=== PATIENT | male | born 1965 | race Caucasian/White ===

== ENCOUNTER → 2023-02-26 | Outpatient (CLI) | payer BC ==
[2023-02-27 05:21] LABS: ALT 69 U/L (10-49); AST 48 U/L (14-35); Albumin 4.2 d/dL (3.8-4.9); Albumin/Globulin Ratio 1.27 Ratio (1.60-3.17); Alkaline Phosphatase 141 U/L (41-126); Blood Urea Nitrogen 15.1 mg/dL (9.0-27.0); Calcium 9.6 mg/dL (8.7-10.3); Carbon Dioxide 23.9 mmol/L (21.6-31.8); Chloride 100 mmol/L (96-109); Chol/HDL Ratio 3.33 Ratio; Globulin 3.3 d/dL (1.6-3.3); Glucose 94 mg/dL (70-110); LDL Cholesterol,Calculated 86.4 mg/dL (0.0-131.0); Potassium 4.9 mmol/L (3.5-5.5); Sodium 136 mmol/L (135-145); Total Bilirubin 0.7 mg/dL (0.3-1.2); Total Protein 7.5 d/dL (6.2-8.2)
== END | disposition home or self-care (01) ==
LOC: LABWHC1 07:09
PROVIDERS: ATTEND Internal Medicine Interventional Cardiology
DX: I48.0 Paroxysmal atrial fibrillation (principal); E78.2 Mixed hyperlipidemia
CPT/HCPCS: 36415; 80053; 80061; 84443

== ENCOUNTER → 2023-02-28 | Outpatient (CLI) | payer BC ==
--- NOTE | 2023-02-28 15:57 | CA ---
Transthoracic Echo Report Name: Jarad Carney Age: 57 Gender: M : 1965 Exam Date: 02/28/2023 13:09 Exam Location: [facility] Ht (in): 71 Wt (lb): 155 Ordering Physician: Mitzi Lemon MD ([id number]) Attending/Referring Phys: Spray Operator Sydney Grewal RDCS Procedure CPT: Indications: I42.9 cardiomyopathy Cardiac Hx: Technical Quality: Fair Contrast 1: Total Dose (mL): Contrast 2: Total Dose (mL): MEASUREMENTS (Male / Female) Normal Values 2D ECHO LV Diastolic Diameter PLAX 4.4 cm 4.2 - 5.9 / 3.9 - 5.3 cm LV Systolic Diameter PLAX 3.8 cm IVS Diastolic Thickness 1.2 cm 0.6 - 1.0 / 0.6 - 0.9 cm LVPW Diastolic Thickness 1.4 cm 0.6 - 1.0 / 0.6 - 0.9 cm LV Relative Wall Thickness 0.6 RV Internal Dim ED PLAX 4.0 cm LA Volume 59.7 cm??? 18 - 58 / 22 - 52 cm??? M-MODE Aortic Root Diameter MM 3.4 cm LA Systolic Diameter MM 3.7 cm LA Ao Ratio MM 1.1 AV Cusp Separation MM 2.4 cm DOPPLER AV Peak Velocity 100.4 cm/s AV Peak Gradient 4.0 mmHg AV Mean Velocity 79.0 cm/s AV Mean Gradient 2.6 mmHg AV Velocity Time Integral 21.1 cm LVOT Peak Velocity 110.5 cm/s LVOT Peak Gradient 4.9 mmHg LVOT Velocity Time Integral 19.1 cm MV Peak Velocity 239.7 cm/s MV Peak Gradient 23.0 mmHg MV Mean Velocity 121.3 cm/s MV Mean Gradient 7.8 mmHg MV Velocity Time Integral 44.8 cm MV Area PHT 2.0 cm??? Mitral E Point Velocity 176.9 cm/s Mitral A Point Velocity 1.8 cm/s Mitral E to A Ratio 100.3 MV Deceleration Time 376.7 ms TR Peak Velocity 284.8 cm/s TR Peak Gradient 32.4 mmHg Right Ventricular Systolic Press 37.0 mmHg FINDINGS Left Ventricle Mildly increased left ventricular wall thickness. Left ventricular cavity size normal. Abnormal (paradoxical) septal motion consistent with postoperative state. Reduced global left ventricular systolic function. Left ventricular ejection fraction is estimated at 30-35 %. Right Ventricle Moderate right ventricular dilatation. Mild pulmonary hypertension. Right Atrium Normal right atrial size. Left Atrium Mildly increased left atrial volume. Mitral Valve S/P Mitral valve repair, no mitral regurgitation. Aortic Valve Trileaflet aortic valve. No aortic valve stenosis or regurgitation. Aortic valve sclerosis. Tricuspid Valve Structurally normal tricuspid valve. Mild tricuspid regurgitation. Pulmonic Valve Trace pulmonic regurgitation. Pericardium No pericardial effusion. Aorta Normal size aortic root and proximal ascending aorta. CONCLUSIONS Mildly increased left ventricular wall thickness Left ventricular ejection fraction 30-35% Bioprosthetic mitral valve replacement with appropriate function Mild tricuspid regurgitation Previewed by: Dr. Valerio Alvarez DO (Electronically Signed) Final Date: 28 February 2023 15:56
== END | disposition home or self-care (01) ==
LOC: RADECHMAIN 12:58
PROVIDERS: ATTEND Internal Medicine Interventional Cardiology
DX: I07.1 Rheumatic tricuspid insufficiency (principal); I27.20 Pulmonary hypertension, unspecified; I42.9 Cardiomyopathy, unspecified
CPT/HCPCS: 93306

== ENCOUNTER → 2023-03-14 | Outpatient (CLI) | payer BC ==
[2023-03-14 11:39] LABS: ALT 53 U/L (10-49); AST 38 U/L (14-35); Chol/HDL Ratio 3.16 Ratio; LDL Cholesterol,Calculated 76.9 mg/dL (0.0-131.0); VLDL Calculation 19.48 mg/dL (5.00-40.00)
== END | disposition home or self-care (01) ==
LOC: LABWHC1 07:10
PROVIDERS: ATTEND Nurse Practitioner Adult Health
DX: E78.2 Mixed hyperlipidemia (principal)
CPT/HCPCS: 36415; 80061; 84450; 84460

== ENCOUNTER → 2023-04-25 | Outpatient (CLI) | payer BC ==
[2023-04-25 13:03] LABS: ALT 28 U/L (4-49); AST 29 U/L (17-59); African American GFR (CKD) 87 (>60 ml/min/1.73 sqM); Albumin/Globulin Ratio 1.1; Alkaline Phosphatase 104 U/L (38-126); Anion Gap 6 mmol/L; Blood Urea Nitrogen 16 mg/dL (9-20); Calcium 8.9 mg/dL (8.4-10.2); Carbon Dioxide 25 mmol/L (22-30); Chloride 102 mmol/L (98-107); Globulin 3.5 g/dL; Glucose 85 mg/dL (74-99); Non-African American GFR(CKD) 75 (>60 ml/min/1.73 sqM); Potassium 4.7 mmol/L (3.5-5.1); Sodium 133 mmol/L (137-145); Total Bilirubin 1.2 mg/dL (0.2-1.3); Total Protein 7.5 g/dL (6.3-8.2)
[2023-04-25 13:09] LABS: NT-Pro-B-Type Natriuretic Pept 1400 pg/mL
== END | disposition home or self-care (01) ==
LOC: LABWHC1 11:37
PROVIDERS: ATTEND Internal Medicine Interventional Cardiology
DX: I25.5 Ischemic cardiomyopathy (principal)
CPT/HCPCS: 36415; 80053; 83880

== ENCOUNTER → 2024-11-20 | Outpatient (CLI) | payer BC ==
[2024-11-20 10:45] LABS: HCT 43.9 % (39.6-50.0); HGB 13.8 g/dL (13.0-17.0); MCH 27.7 pg (27.0-32.0); MCHC 31.4 g/dL (32.0-37.0); MCV 88.2 FL (80.0-97.0); Mean Platelet Volume 9.9 FL (9.5-12.2); NRBC Per 100 WBC 0 X 10*3/uL (0.00-0.01); Platelet Count 365 X 10*3/uL (140-440); RBC 4.98 X 10*6/uL (4.40-5.60); RDW 13.1 % (11.5-14.5); WBC 6.34 X 10*3/uL (4.50-10.00)
[2024-11-20 10:46] LABS: Basophils # (A) 0.03 X 10*3/uL (0.00-0.10); Basophils % (A) 0.5 %; Eosinophils # (A) 0.18 X 10*3/uL (0.04-0.35); Eosinophils % (A) 2.8 %; Lymphocytes % (A) 26.8 %; Monocytes # (A) 0.52 X 10*3/uL (0.20-1.00); Monocytes % (A) 8.2 %; Neutrophils # (A) 3.85 X 10*3/uL (1.80-7.70); Neutrophils % (A) 60.8 %
[2024-11-20 11:02] LABS: Protein, Total 6.9 g/dL (6.2-8.2)
[2024-11-20 11:06] LABS: ALT 25 U/L (10-49); AST 29 U/L (14-35); Albumin 3.8 g/dL (3.8-4.9); Albumin/Globulin Ratio 1.12 Ratio (1.60-3.17); Alkaline Phosphatase 107 U/L (41-126); Blood Urea Nitrogen 8.4 mg/dL (9.0-27.0); Calcium 9.1 mg/dL (8.7-10.3); Carbon Dioxide 25.7 mmol/L (21.6-31.8); Chloride 103 mmol/L (96-109); Globulin 3.4 g/dL (1.6-3.3); Glucose 76 mg/dL (70-110); Potassium 4.5 mmol/L (3.5-5.5); Sodium 139 mmol/L (135-145); Total Bilirubin 0.6 mg/dL (0.3-1.2); Total Protein 7.2 g/dL (6.2-8.2)
[2024-11-20 12:05] LABS: Erythrocyte Sedimentation Rate 46 mm/Hr (0-20)
== END | disposition home or self-care (01) ==
LOC: LABWHC1 07:02
PROVIDERS: ATTEND Internal Medicine
DX: L50.9 Urticaria, unspecified (principal)
CPT/HCPCS: 36415; 80053; 84165; 84166; 84443; 85025; 85652; 86038; 86039; 86140; 86160; 86161; 86332